=== PATIENT | female | born 1945 | race Caucasian/White ===

== ENCOUNTER 2023-04-21 11:13 | Emergency (ER) | payer MEDICARE, BC | END 2023-04-21 13:43 | disposition home or self-care (01) | LOC: JD.ED 11:13 | DX: I82.402 Acute embolism and thrombosis of unspecified deep veins of left lower extremity (principal); Z88.1 Allergy status to other antibiotic agents; Z88.2 Allergy status to sulfonamides | CPT/HCPCS: 93971-26-LT; 93971-LT; 99283 ==

== ENCOUNTER 2025-05-28 08:19 | Day surgery (SDC) | payer MEDICARE, BC ==
[~2025-05-28 08:19] MED LIST: Cefuroxime 10 MG/ML SYRINGE EYELF SCH; Pilocarpine 4% Ophth Soln 15 ML Bot EYELF SCH
[2025-05-28] MEDS: Dexamethasone/Tobramycin 0.1-0.3% Ophth Susp 5 ML Bottle EYELF SCH (08:31)
[2025-05-28] MEDS: Tropicamide 1% Ophth Soln 3 ML Bottle EYELF SCH (08:37)
[2025-05-28] MEDS: Tetracaine HCl/PF 0.5% 4 ML Bottle EYEBOTH SCH (09:51)
[2025-05-28] MEDS: Lidocaine 1% PF 2 ML SDV INJECT SCH (10:15)
== END 2025-05-28 10:34 | disposition home or self-care (01) ==
LOC: JD.SDS 08:19
PROVIDERS: ATTEND Ophthalmology
DX: H25.813 Combined forms of age-related cataract, bilateral (principal); H16.223 Keratoconjunctivitis sicca, not specified as Sjogren's, bilateral; H16.103 Unspecified superficial keratitis, bilateral; H57.813 Brow ptosis, bilateral; H02.831 Dermatochalasis of right upper eyelid; H02.834 Dermatochalasis of left upper eyelid; H43.813 Vitreous degeneration, bilateral; I10 Essential (primary) hypertension; E03.9 Hypothyroidism, unspecified; E78.00 Pure hypercholesterolemia, unspecified; Z88.2 Allergy status to sulfonamides; Z88.8 Allergy status to other drugs, medicaments and biological substances; Z79.01 Long term (current) use of anticoagulants; Z79.899 Other long term (current) drug therapy; Z79.890 Hormone replacement therapy
CPT/HCPCS: A9270-GY; J3490